=== PATIENT | female | born 1990 | race Caucasian/White ===

== ENCOUNTER 2016-07-09 15:33 | Outpatient (CLI) | payer OTHER ==
[~2016-07-09] VITALS: Ht 158.8 cm; Wt 86.4 kg
[~2016-07-09 15:33] MED LIST: ACET500C5 PO; ALBU8.5H3 INH; AZIT250T94 PO; CEPH-443 PO; CETI10CA PO; GUAI120S26 PO; IBUP-1542 PO; ONDA4TAB14 PO; PNV1TABL12; TRAM50TA2 PO
[2016-07-09 16:11] VITALS: Ht 158.8 cm; Wt 86.4 kg
[2016-07-09 16:12] VITALS: BP 125/78; PULSE 111; RESP 18
--- NOTE | 2016-07-09 17:10 | RADRPT ---
PROCEDURE: US OB biophysical profile. CLINICAL INDICATION: decreased movements, leaking fluid TECHNIQUE: Multiple sonographic images of the pelvis were obtained. The images were reviewed on a PACS workstation. COMPARISON: 02/13/2016 FINDINGS: There is a single viable intrauterine gestation. Cardiac activity is present with 123 beats per min [place]. There is a vertex presentation. The placenta is anterior. There is no evidence of placental abruption. There is a normal amount of amniotic fluid with an GUNJAN = 10.5 cm. Biophysical profile: movement 2/2 tone 2/2. breathing 2/2 GUNJAN 2/2 Total 12/29 RPTAT: AA . IMPRESSION: Normal biophysical profile. . .Alton Fernandez MD, MD Date Time Electronically viewed and signed by .Alton Fernandez MD, MD on 07/09/2016 17:09 .S/
[2016-07-09 17:38] LABS: BASOPHILS % 0.3 % (0.0-2.0); EOSINOPHILS % 0.1 % (0.0-7.0); HEMATOCRIT 34.3 % (37.0-47.0); HEMOGLOBIN 11.6 g/dl (12.0-16.0); LYMPHOCYTES # 2.4 10^3/ul (0.8-2.9); LYMPHOCYTES % 25.3 % (15.0-51.0); MEAN CORPUSCULAR HGB CONC 33.9 g/dl (32.0-37.0); MEAN CORPUSCULAR VOLUME 91.6 fl (82.0-101.0); MEAN PLATELET VOLUME 11.3 fl (7.4-10.4); MONOCYTE # 0.7 10^3/ul (0.3-0.9); NEUTROPHIL # 6.5 10^3/ul (1.6-7.5); NEUTROPHILS % 67.3 % (39.0-77.0); PLATELET COUNT 164 10^3/UL (140-440); RED BLOOD COUNT 3.75 10^6/ul (4.20-5.40); RED CELL DISTRIBUTION WIDTH 13.2 % (11.5-14.5); UNCORRECTED WBC 9.7 10^3/ul (4.8-10.8); WHITE BLOOD COUNT 9.7 10^3/ul (4.8-10.8)
[2016-07-09 17:40] LABS: CONDITION 1
[2016-07-09 17:43] LABS: ADD UMIC YES; URINE BILIRUBIN (Dip) NEGATIVE (NEGATIVE); URINE BLOOD (Dip) 2+ (NEGATIVE); URINE COLOR YELLOW (YELLOW); URINE GLUCOSE (Dip) NEGATIVE (NEGATIVE); URINE KETONES (Dip) NEGATIVE (NEGATIVE); URINE LEUKOCYTE ESTERASE (Dip) TRACE (NEGATIVE); URINE NITRITE (Dip) NEGATIVE (NEGATIVE); URINE TOTAL PROTEIN (Dip) TRACE (NEGATIVE); URINE UROBILINOGEN (Dip) 0.2 E.U./dL (0.1-1.0)
[2016-07-09 18:16] LABS: SQUAMOUS EPITHELIAL CELL,UR MODERATE
[2016-07-09 18:17] LABS: BACTERIA,URINE MODERATE; MUCUS,URINE FEW
--- NOTE | 2016-07-09 19:25 | CONS ---
Date/Time of Note Date/Time of Note DATE: 07/09/16 TIME: 19:16 Consultation Date/Type/Reason Admit Date/Time July 09, 2016 Triage consult This patient is a 25 years old 3 para 2 with EDC of July 26, 2069 which makes her 37 weeks and 4 days She came to OB triage with main complaint nausea vomiting chills watery diarrhea and pressure in her abdomen for about 2 days On examination her blood pressure was 125/78 pulse rate 111 temperature 98.3 heart rate about 145-150 on physical examination she was afebrile and no clear evidence of upper respiratory tract infection however due to vaginal discharge that she was complaining ROM plus was performed was negative her CBC was within normal urinalysis was negative ultrasound performed Her biophysical profile biophysical profile with 88 with GUNJAN of 10.5 cm IV hydration was given. Patient feels much better and option of going down to emergency room for further workup or going home was presented she decided not to go to emergency room and go home she will be seen by her physician 2 days Laboratory Tests Test 07/09/16 15:30 07/09/16 17:00 Urine Bacteria MODERATE Urine Bilirubin NEGATIVE Urine Clarity SLIGHTLY CLOUDY Urine Color YELLOW Urine Glucose NEGATIVE% Urine Hemoglobin 2+ Urine Ketones NEGATIVE Urine Leukocyte Esterase TRACE Urine Microscopic RBC 10-25/HPF Urine Microscopic WBC 0-2/HPF Urine Mucus FEW Urine Nitrite NEGATIVE Urine Specific [place] 1.020 Urine Squamous Epithelial Cells MODERATE Urine Total Protein TRACE Urine Urobilinogen 0.2 E.U./dL Urine pH 6.5 Basophils # 0.010^3/ul Basophils % 0.3% Blood Morphology Comment Eosinophils # 0.010^3/ul Eosinophils % 0.1% Membranes Rupture NEGATIVE Hematocrit 34.3% Hemoglobin 11.6g/dl Lymphocytes # 2.410^3/ul Lymphocytes % 25.3% Mean Corpuscular Hemoglobin 31.0pg Mean Corpuscular Hemoglobin Concent 33.9g/dl Mean Corpuscular Volume 91.6fl Mean Platelet Volume 11.3fl Monocytes # 0.710^3/ul Monocytes % 7.0% Neutrophils # 6.510^3/ul Neutrophils % 67.3% Nucleated Red Blood Cells # 0.010^3/ul Nucleated Red Blood Cells % 0.0/100WBC Platelet Count 01021^3/UL Red Blood Count 3.7510^6/ul Red Cell Distribution Width 13.2% White Blood Count 9.710^3/ul Constitutional: no complaints Eyes: no complaints ENT: no complaints Respiratory: no complaints Cardiovascular: no complaints Gastrointestinal: diarrhea, pain, vomiting Genitourinary: no complaints Musculoskeletal: no complaints Skin: no complaints Neurologic: no complaints Endocrine: no complaints Lymphatic: no complaints Psychological: no complaints Immunologic: no complaints Social History Smoking Status: Former smoker Exam/Review of Systems Vital Signs Vitals Vital Signs Date Time Temp Pulse Resp B/P Pulse Ox O2 Delivery O2 Flow Rate FiO2 07/09/16 16:12 98.3 111 18 125/78 Room Air Results Result Diagram: 07/09/16 1700 Results 24 hrs Laboratory Tests Test 07/09/16 15:30 07/09/16 17:00 Urine Bacteria MODERATE Urine Bilirubin NEGATIVE Urine Clarity SLIGHTLY CLOUDY Urine Color YELLOW Urine Glucose NEGATIVE Urine Hemoglobin 2+ H Urine Ketones NEGATIVE Urine Leukocyte Esterase TRACE H Urine Microscopic RBC 10-25 Urine Microscopic WBC 0-2 Urine Mucus FEW Urine Nitrite NEGATIVE Urine Specific [place] 1.020 Urine Squamous Epithelial Cells MODERATE Urine Total Protein TRACE Urine Urobilinogen 0.2 E.U./dL Urine pH 6.5 Basophils # 0.0 Basophils % 0.3 Blood Morphology Comment Eosinophils # 0.0 Eosinophils % 0.1 Membranes Rupture NEGATIVE Hematocrit 34.3 L Hemoglobin 11.6 L Lymphocytes # 2.4 Lymphocytes % 25.3 Mean Corpuscular Hemoglobin 31.0 Mean Corpuscular Hemoglobin Concent 33.9 Mean Corpuscular Volume 91.6 Mean Platelet Volume 11.3 H Monocytes # 0.7 Monocytes % 7.0 Neutrophils # 6.5 Neutrophils % 67.3 Nucleated Red Blood Cells # 0.0 Nucleated Red Blood Cells % 0.0 Platelet Count 164 # Red Blood Count 3.75 L Red Cell Distribution Width 13.2 White Blood Count 9.7 FATMATA VARELA MD Jul 09, 2016 19:25
--- NOTE | 2016-07-09 20:02 | TRIAGE ---
OB Triage Datetime Report Generated by CPN: 07/09/2016 20:01 Datetime: 07/09/2016 18:42 Stage of : OB Triage Labor Evaluation Frequency: 0 Monitor Mode: External Resting Tone [place]: Relaxed Heart Rate FHR Baseline Rate: 120 Monitor Mode: External US FHR Baseline Changes: No Baseline Change Variability: Moderate 6-25 bpm Accelerations: 15X15 Decelerations: None Category: Category I Datetime: 07/09/2016 18:29 Stage of : OB Triage Datetime: 07/09/2016 18:00 Stage of : OB Triage Labor Evaluation Frequency: 0 Monitor Mode: External Resting Tone [place]: Relaxed Heart Rate FHR Baseline Rate: 135 Monitor Mode: External US FHR Baseline Changes: No Baseline Change Variability: Moderate 6-25 bpm Accelerations: 15X15 Decelerations: None Category: Category I Datetime: 07/09/2016 17:14 Vaginal Exam Dilatation (cms): 0.0 Effacement (%): 50 Station: -2 Exam By: Delon YOUNG Vaginal Bleeding: None Cervix, Consistency: Firm Cervix, Position: Posterior Presentation 'A': Cephalic Datetime: 07/09/2016 17:05 Stage of : OB Triage Datetime: 07/09/2016 16:56 Stage of : OB Triage Labor Evaluation Frequency: 0 Monitor Mode: External Resting Tone [place]: Relaxed Heart Rate FHR Baseline Rate: 135 Variability: Moderate 6-25 bpm Accelerations: 15X15 Decelerations: None Category: Category I Datetime: 07/09/2016 16:36 Stage of : OB Triage Datetime: 07/09/2016 16:02 EGA: 37.4 Arrived From: Home Movement: Present Contractions: Denies/Absent Rupture of Membranes: Unsure Vaginal Bleeding: None Vaginal Discharge: Denies Recent Sexual Intercouse: Denies Abdominal Trauma: Not Applicable Patient Complaints: Nausea; Vomiting Provider Notified: FOROOHAR Datetime: 07/09/2016 16:01 Time of Arrival: 07/09/2016 15:21 Arrived By: Ambulatory Arrived From: Home Chief Complaint: N/V, CHILLS, DIARRHEA, PRESSURE, LEAKING Movement: Present Contractions: Denies/Absent Rupture of Membranes: Unsure Vaginal Bleeding: None Vaginal Discharge: Denies Recent Sexual Intercouse: Denies Abdominal Trauma: Not Applicable Patient Complaints: Nausea; Vomiting; Other Additional Patient Complaints: hx of Acid Reflux disease Provider Notified: AVERY Initial Plan: VS, EFM, ROM+, UA, CBC, BPP Datetime: 07/09/2016 16:00 Assessment Type: Triage Maternal Assessment Level of Consciousness: Fully Conscious DTR's/Clonus: DTRs 2+; No Clonus Headache: Denies Blurred Vision: No Respiratory Effort: Unlabored Breath Sounds, Left: Clear and Equal Breath Sounds, Right: Clear and Equal Nausea/Vomiting: Present RUQ Epigastric Pain: Denies Lower Extremities Edema: Bilateral Lower Extremities Degree: 1+ Upper Extremities Edema: None Degree: None Facial Edema: None Fall Risk Assessment History of Falling: (0) No Secondary Diagnosis: (15) Yes (Annotations: ACID REFLUX DISEASE) Ambulatory Aid: (0) Bedrest/Nurse Assist IV Therapy: (0) No Gait: (0) Normal/Bedrest/Immobile Mental Status: (0) Oriented to Own Ability Fall Score: 15 Fall Risk Score Definition: No Risk: No action required Datetime: 07/09/2016 15:55 Stage of : OB Triage Monitor Mode: External Monitor Mode: External US
== END 2016-07-09 18:55 | disposition home or self-care (01) ==
LOC: OBT 15:33 → L-D 15:34 → OBT 18:55
DX: O21.2 Late vomiting of pregnancy (principal); O26.893 Other specified pregnancy related conditions, third trimester; N89.8 Other specified noninflammatory disorders of vagina; Z3A.37 37 weeks gestation of pregnancy; Z87.891 Personal history of nicotine dependence
CPT/HCPCS: 36415; 76818; 81001; 84112; 85025; Z7500; 81003; G0463

== ENCOUNTER 2016-07-20 23:56 | Inpatient (IN) | payer OTHER ==
[~2016-07-20] VITALS: Ht 157.5 cm; Wt 85.3 kg
[2016-07-21 00:03] VITALS: Ht 157.5 cm; Wt 85.3 kg
[2016-07-21 00:31] VITALS: BP 129/72; PULSE 48; RESP 18
[2016-07-21] MEDS ORDERED: OXYTOCIN 30 UNITS/LR 500 ML IV PRN ×3 (02:00→21:30)
[2016-07-21] MEDS ORDERED: LACTATED RINGER'S 1,000 ML IV PRN (02:00)
[2016-07-21] MEDS ORDERED: CARBOPROST 250 MCG INJ IM PRN ×3 (02:00→21:30)
[2016-07-21] MEDS ORDERED: MISOPROSTOL 200 MCG TAB PR PRN ×3 (02:00→21:30)
[2016-07-21] MEDS ORDERED: LIDOCAINE 1% (MPF) 30 ML INJ INJ PRN (02:00)
[2016-07-21] MEDS ORDERED: IBUPROFEN 600 MG TAB PO PRN ×2 (02:00→18:00)
[2016-07-21] MEDS ORDERED: BUTORPHANOL 2 MG INJ IV PRN (02:00)
[2016-07-21] MEDS ORDERED: OXYTOCIN 30 UNITS/LR 500 ML IV SCH ×3 (02:00→17:33)
[2016-07-21] MEDS ORDERED: METHYLERGONOVINE 0.2 MG INJ IM PRN ×3 (02:00→21:30)
[2016-07-21 02:08] LABS: ADD SCAN DIFF NO
[2016-07-21 02:17] LABS: BASOPHILS % 0.2 % (0.0-2.0); EOSINOPHILS # 0.1 10^3/ul (0.0-0.5); EOSINOPHILS % 0.6 % (0.0-7.0); HEMATOCRIT 35.5 % (37.0-47.0); HEMOGLOBIN 11.9 g/dl (12.0-16.0); LYMPHOCYTES % 33.8 % (15.0-51.0); MEAN CORPUSCULAR HEMOGLOBIN 30.8 pg (29.0-33.0); MEAN CORPUSCULAR HGB CONC 33.5 g/dl (32.0-37.0); MONOCYTE # 0.6 10^3/ul (0.3-0.9); MONOCYTES % 6.2 % (0.0-11.0); NEUTROPHIL # 5.3 10^3/ul (1.6-7.5); NEUTROPHILS % 58.9 % (39.0-77.0); PLATELET COUNT 153 10^3/UL (140-415); RED BLOOD COUNT 3.86 10^6/ul (4.20-5.40)
[2016-07-21 02:20] LABS: INR 0.9; PROTIME 12.1 Sec (12.2-14.2); PT RATIO 0.9
[2016-07-21] MEDS: LACTATED RINGER'S 1,000 ML IV SCH ×3 (02:20→15:31)
[2016-07-21 02:21] LABS: PARTIAL THROMBOPLASTIN TIME 26.4 Sec (25.0-35.0)
--- NOTE | 2016-07-21 03:06 | HP ---
Date/Time of Note Date/Time of Note DATE: 07/21/16 TIME: 03:01 OB - History Hx of Present Free Text/Dictation 25 Year-old with SIUP at 39 weeks presents with a chief complaint of uterine contractions. She was seen at [facility] last night and her exam was 2-/-2 there. She has been receiving her care with an OB clinic. She states good movement. She denies nausea, vomiting, shortness of breath, chest pain, and abdominal pain between contractions, headache, visual changes, vaginal bleeding or LOF. Chief Complaint: uterine contractions : 3 Para: 2 Spontaneous : 0 Therapeutic : 0 Care: Good Care Ultrasounds: Normal mid trimester US Obstetrical Complications: None Medical Complications: None Past Family/Social History * Past Medical, Surgical, Family and Obstetric Histories reviewed from chart. Blood Type: O- Rubella: immune RPR/VDRL: Negative GBS Status: Negative HBsAG: Negative OB Admission Exam Vital Signs Vital Signs Vital Signs Date Time Temp Pulse Resp B/P Pulse Ox O2 Delivery O2 Flow Rate FiO2 07/21/16 00:31 97.6 48 18 129/72 Room Air Physical Exam HEENT: WNL Heart: Rhythm Normal Lungs: Clear Abdomen: WNL Extremities: Normal Cervical Dilatation: 4cm Effacement: 75% Station: -2 Membranes: Intact Heart Rate: 140's Accelerations: Accelerations Present Decelerations: No Decelerations Varibility: Moderate Contractions on Admission: < 5 Minutes Apart Intensity: Moderate Last 72 hours Lab Results CBC & BMP 07/21/16 01:55 OB Assessment/Plan Other plan: 25 Year-old with SIUP at 39 weeks in labor. - FHR: No sign of metabolic acidosis- Category I - Continious EFM, toco - CBC, blood type and screen - Analgesia options with R/B/A discussed in detail with patient - Epidural per patient request - Please see the orders - O neg/Rubella: Immune/GBS negative Admission, procedures, expectations, risks and possible complications have been discussed in detail with the patient. Risk of vaginal delivery including but not limited to bleeding, infection, cervical laceration, placental retention, injury to fetus, blood transfusion, blood transfusion related infection, risk of anesthesia, adhesion, cervical laceration, episiotomy/laceration, possible delivery with risk of bleeding, infection, injury to other organs ( bowel, bladder, ureter, vessels, nerves), injury to fetus, blood transfusion, blood transfusion related infection, risk of anesthesia, scar and hernia formation, needs for future , removal of uterus or any other indicated surgery discussed with the patient. She expressed understanding and repeats the risks. All of her questions were answered; all appropriate consents will be signed. PHYSICIAN'S VERIFICATION OF INFORMED CONSENT: The patient was counseled regarding the procedure, its indications, risks, potential complications and alternatives and any questions were answered. Consent was obtained. PLANNED PROCEDURE/TREATMENT: Vaginal delivery with possible vacuum/forceps delivery episiotomy, repair of laceration possible delivery PHYSICIAN'S VERIFICATION OF INFORMED CONSENT FOR BLOOD TRANSFUSION: There is a reasonable possibility that blood transfusion will be necessary as a result of the patient's procedure. I have discussed the following with the patient/patient's legal fundraising sale representative: An explanation of the benefits and risks of the transfusion of blood or blood products and the possible alternatives. Al questions have been answered to the patient's/patients legal representatives satisfaction. INFORMED CONSENT: The patient has been informed of: - The nature of the proposed care, treatment, services, medic- Potential benefits, risks or side effects, including potential problems related to recuperation. - The likelihood of achieving care treatment and service goals. - Reasonable alternatives to the proposed care, treatment and service. - The relevant risks, benefits and side effects related to alternatives, including the possible results of not receiving care, treatment and services. - When indicated, any limitations on the confidentiality of information learned from or about the patient. - If appropriate, the risks, benefits and alternatives of the drugs to be used for sedation/analgesia including moderate sedation. - If appropriate, patient has been provided information on the risks, benefits and alternatives to the transfusion of blood and/or blood products. EDWARDO HELTON Jul 21, 2016 03:06
--- NOTE | 2016-07-21 04:18 | TRIAGE ---
OB Triage Datetime Report Generated by CPN: 07/21/2016 04:17 Datetime: 07/21/2016 02:15 Assessment Type: Admission Assessment Vaginal Bleeding: Scant Maternal Assessment Level of Consciousness: Fully Conscious DTR's/Clonus: DTRs 2+; No Clonus Headache: Denies Blurred Vision: No Respiratory Effort: Unlabored Breath Sounds, Left: Clear and Equal Breath Sounds, Right: Clear and Equal Nausea/Vomiting: Denies RUQ Epigastric Pain: Denies Lower Extremities Edema: Bilateral Lower Extremities Degree: 1+ Upper Extremities Edema: None Degree: None Facial Edema: None Fall Risk Assessment History of Falling: (0) No Secondary Diagnosis: (0) No Ambulatory Aid: (0) Bedrest/Nurse Assist IV Therapy: (0) No Gait: (0) Normal/Bedrest/Immobile Mental Status: (0) Oriented to Own Ability Fall Score: 0 Fall Risk Score Definition: No Risk: No action required Pain Assessment Pain Scale: 7 Pain Presence: Intermittent Pain Type: Contraction Pain Location: Back Pain Goal: 0 Membrane Status: Intact Datetime: 07/21/2016 02:00 Labor Evaluation Frequency: Irregular Monitor Mode: External Duration (sec)2399: 40-80 Quality: Mild Pattern: Normal: <= 5 Contractions in 10 Minutes Resting Tone [place]: Relaxed Heart Rate FHR Baseline Rate: 115 Monitor Mode: External US Variability: Moderate 6-25 bpm Accelerations: 15X15 Decelerations: None Category: Category I Datetime: 07/21/2016 01:55 Stage of : Labor Datetime: 07/21/2016 01:47 Membrane Status: Intact Datetime: 07/21/2016 01:19 Stage of : OB Triage Datetime: 07/21/2016 01:00 Labor Evaluation Frequency: 3-9 Monitor Mode: External Duration (sec)2399: 40-90 Quality: Mild Pattern: Normal: <= 5 Contractions in 10 Minutes Resting Tone [place]: Relaxed Heart Rate FHR Baseline Rate: 120 Monitor Mode: External US Variability: Moderate 6-25 bpm Accelerations: 15X15 Decelerations: None Category: Category I Datetime: 07/21/2016 00:25 Vaginal Exam Dilatation (cms): 4.0 Effacement (%): 80 Station: -2 Exam By: DGS RN Vaginal Bleeding: Normal Show Cervix, Consistency: Soft Cervix, Position: Posterior Datetime: 07/21/2016 00:15 Assessment Type: Triage Maternal Assessment Level of Consciousness: Fully Conscious DTR's/Clonus: DTRs 2+; No Clonus Headache: Denies Blurred Vision: No Respiratory Effort: Unlabored; Regular Rhythm; Equal Expansion Nausea/Vomiting: Denies RUQ Epigastric Pain: Denies Lower Extremities Edema: None Degree: None Upper Extremities Edema: None Degree: None Facial Edema: None Fall Risk Assessment History of Falling: (0) No Secondary Diagnosis: (0) No Ambulatory Aid: (0) Bedrest/Nurse Assist IV Therapy: (0) No Gait: (0) Normal/Bedrest/Immobile Mental Status: (0) Oriented to Own Ability Fall Score: 0 Fall Risk Score Definition: No Risk: No action required Datetime: 07/21/2016 00:13 Stage of : OB Triage Temperature Route: Oral Pain Assessment Pain Scale: 7 Pain Presence: Intermittent Pain Type: Cramping (Annotations: TIGHTENING) Pain Location: Abdomen; Perineum Pain Goal: 3 Pain Relief Measures: Comfort Measures Datetime: 07/21/2016 00:11 Monitor Mode: External Contraction Comments: [place] applied Heart Rate FHR Baseline Rate: 120 Monitor Mode: External US Comments: EFM applied Datetime: 07/20/2016 23:51 Time of Arrival: 07/20/2016 23:51 EGA: 38.6 Arrived By: Ambulatory Arrived From: Other Hospital Chief Complaint: UC'S, SPOTTING Movement: Present Contractions: Irregular Time Contractions Began: 07/20/2016 22:15 Rupture of Membranes: Denies Vaginal Bleeding: Normal Show Vaginal Discharge: Present Recent Sexual Intercouse: Denies Abdominal Trauma: Not Applicable Patient Complaints: Contractions Additional Patient Complaints: Pt states she just came from [facility] b/c they refused to admit her. Per pt saw pt in clinic today (07/20) _ stated she was 3-4cm _ should go to [facility] if had any pain or uc's. Pt states VE was 3-4cm at [facility] with bloody show. Per [facility] RN V E was 2-3cm with no uc's over 1hr. Pt refuses to be sent home. Time Provider Notified: 07/21/2016 01:19 Provider Notified: Dr.Hadadian Datetime: 07/09/2016 16:02 EGA: 37.2 Datetime: 07/09/2016 16:00 Fall Score: 15 Fall Risk Score Definition: No Risk: No action required
[2016-07-21] MEDS ORDERED: FENTAnyl 2MCG/ML-ROPIV 0.2% 100 ML ONE (05:13)
[2016-07-21] MEDS ORDERED: FENTAnyl 2MCG/ML-ROPIV 0.2% 100 ML BAG EPI SCH (06:00)
[2016-07-21] MEDS ORDERED: NALOXONE (0.4 MG/ML) INJ IV PRN (06:00)
[2016-07-21] MEDS ORDERED: LACTATED RINGER'S 1,000 ML IV* SCH (17:33)
--- NOTE | 2016-07-21 17:33 | LDN ---
Date/Time of Note Date/Time of Note DATE: 07/21/16 TIME: 17:27 Delivery Summary April 20, 2017 Delivery note This patient is a 25 years old 3 para 2 with the estimated date of confinement of July 28, 2016. She was admitted late last night in early labor and made gradual progress to complete dilatation under epidural block and Pitocin augmentation and had an spontaneous vaginal delivery 20 minutes ago the was female with score of 9 and 1 minute 9 at 5 minutes weight of the baby was 6 pounds and 10 admission with occiput posterior position mothers blood type is O- we will be performing a test of the blood group of the baby as well Placenta Delivered: Spontaneously Meconium: none Perineum intact?: Yes Anesthesia type: Epidural Estimated blood loss: 250 Sponge & Needle done & correct: Yes All needle counts correct: Yes Any foreign bodies felt in the: No Problems: Delivery Information Sex Sex: female Apgars 1 Minute: 9 5 Minute: 9 Suctioning Nose & mouth suctioned at vani: Yes Delee suction performed: No Umbilical Cord Umbilical cord with: 3 Vessels Cord presentations: nuchal cord Nuchal cord present X: 1 Cord Blood was obtained: Yes Mother & Baby Disposition Disposition Mom & Baby to Maternity; Good: Yes Baby to NICU: No FATMATA VARELA MD Jul 21, 2016 17:33
[2016-07-21] MEDS ORDERED: ACETAMINOPHEN 500 MG TAB PO PRN ×2 (18:00→21:30)
[2016-07-21 20:45] VITALS: BP_SYST 128; BP_SYST 136; BP_DIAS 62; BP_DIAS 65; PULSE 78; RESP 18
[2016-07-21] MEDS: OXYTOCIN 30 UNITS/LR 500 ML IV SCH ×2 (21:12→22:00)
[2016-07-21] MEDS ORDERED: LANOLIN 7 GM TUBE TOP PRN (21:30)
[2016-07-21] MEDS ORDERED: SENNA/DOCUSATE NA (8.6MG/50MG) TAB PO PRN (21:30)
[2016-07-21] MEDS ORDERED: BENZOCAINE 20% 56 ML SPRAY TOP PRN (21:30)
[2016-07-21] MEDS ORDERED: WITCH HAZEL/GLYCERIN PAD PR PRN (21:30)
[2016-07-21] MEDS ORDERED: OXYCODONE/ASPIRIN (4.88/325) TAB PO PRN ×2 (21:30)
[2016-07-21] MEDS ORDERED: DIBUCAINE 1% 30 GM OINT PR PRN (21:30)
[2016-07-22 03:50] VITALS: BP 113/65; PULSE 55; RESP 18
[2016-07-22] MEDS: IBUPROFEN 600 MG TAB PO PRN ×3 (05:52→17:59)
[2016-07-22 09:00] VITALS: BP 129/63; PULSE 44; RESP 18
[2016-07-22 09:28] LABS: ADD SCAN DIFF NO
[2016-07-22 09:40] LABS: BASOPHILS % 0.1 % (0.0-2.0); EOSINOPHILS % 0.4 % (0.0-7.0); HEMATOCRIT 31.6 % (37.0-47.0); HEMOGLOBIN 10.6 g/dl (12.0-16.0); LYMPHOCYTES # 2.5 10^3/ul (0.8-2.9); LYMPHOCYTES % 24.5 % (15.0-51.0); MEAN CORPUSCULAR HEMOGLOBIN 30.9 pg (29.0-33.0); MEAN CORPUSCULAR HGB CONC 33.5 g/dl (32.0-37.0); MEAN CORPUSCULAR VOLUME 92.1 fl (82.0-101.0); MEAN PLATELET VOLUME 12.9 fl (7.4-10.4); MONOCYTE # 0.6 10^3/ul (0.3-0.9); MONOCYTES % 5.8 % (0.0-11.0); NEUTROPHIL # 6.9 10^3/ul (1.6-7.5); NEUTROPHILS % 68.9 % (39.0-77.0); PLATELET COUNT 153 10^3/UL (140-415); RED BLOOD COUNT 3.43 10^6/ul (4.20-5.40)
[2016-07-22 12:30] VITALS: BP 127/71; PULSE 58; RESP 16
[2016-07-22 15:30] VITALS: BP 116/69; PULSE 70; RESP 16
--- NOTE | 2016-07-22 17:07 | PN ---
Date/Time of Note Date/Time of Note DATE: 07/22/16 TIME: 17:05 OB Subjective Subjective Subjective Patient reports vaginal bleeding decrease. She is currently breast-feeding. Ambulating. Passed flatus. Urinated. Denies any dizziness or any other complaint. She requests tubal sterilization. She has signed consent for tubal sterilization at her course and consent is available currently. OB Objective Objective Objective Physical examination: General appearance patient is alert and oriented 4 and is not in acute distress. Abdomen: Soft, obese, no tenderness, no rebound tenderness, no guarding, no rigidity. Fundus palpable at the level of umbilicus. No fundal tenderness. Extremities: 2+ nonpitting bilateral symmetric edema. No calf tenderness, no edema and no cords palpable. Hematology - 72 Hrs Test 07/21/16 01:55 07/22/16 09:09 Basophils # 0.010^3/ul (0.0-0.1) 0.010^3/ul (0.0-0.1) Basophils % 0.2% (0.0-2.0) 0.1% (0.0-2.0) Eosinophils # 0.110^3/ul (0.0-0.5) 0.010^3/ul (0.0-0.5) Eosinophils % 0.6% (0.0-7.0) 0.4% (0.0-7.0) Hematocrit 35.5% (37.0-47.0) L 31.6% (37.0-47.0) L Hemoglobin 11.9g/dl (12.0-16.0) L 10.6g/dl (12.0-16.0) L Lymphocytes # 3.010^3/ul (0.8-2.9) H 2.510^3/ul (0.8-2.9) Lymphocytes % 33.8% (15.0-51.0) 24.5% (15.0-51.0) Mean Corpuscular Hemoglobin 30.8pg (29.0-33.0) 30.9pg (29.0-33.0) Mean Corpuscular Hemoglobin Concent 33.5g/dl (32.0-37.0) 33.5g/dl (32.0-37.0) Mean Corpuscular Volume 92.0fl (82.0-101.0) 92.1fl (82.0-101.0) Mean Platelet Volume 13.0fl (7.4-10.4) H 12.9fl (7.4-10.4) H Monocytes # 0.610^3/ul (0.3-0.9) 0.610^3/ul (0.3-0.9) Monocytes % 6.2% (0.0-11.0) 5.8% (0.0-11.0) Neutrophils # 5.310^3/ul (1.6-7.5) 6.910^3/ul (1.6-7.5) Neutrophils % 58.9% (39.0-77.0) 68.9% (39.0-77.0) Nucleated Red Blood Cells # 0.010^3/ul (0.0-0.0) 0.010^3/ul (0.0-0.0) Nucleated Red Blood Cells % 0.0/100WBC (0.0-0.0) 0.0/100WBC (0.0-0.0) Platelet Count 43728^3/UL (140-415) 74103^3/UL (140-415) Red Blood Count 3.8610^6/ul (4.20-5.40) L 3.4310^6/ul (4.20-5.40) L Red Cell Distribution Width 13.0% (11.5-14.5) 13.0% (11.5-14.5) White Blood Count 9.010^3/ul (4.8-10.8) 10.010^3/ul (4.8-10.8) OB Assessment/Plan Other Assessment: Status post day #1 Doing well Request tubal sterilization. Risk and benefit of procedure including risk of infection, bleeding damage to surrounding structures including bowel and bladder and risk of failure less than 1% risk of ectopic for any failure occurs discussed the patient in detail and informed consent was obtained. Patient verbalized understanding. She has currently had lunch. Plan to schedule for tomorrow for for stabilization. All questions were answered the patient's best satisfaction KRISTI DEVINE MD Jul 22, 2016 17:07
[2016-07-22 20:15] VITALS: BP 113/82; PULSE 71; RESP 18
[2016-07-23] MEDS ORDERED: LACTATED RINGER'S 1,000 ML IV SCH (00:01)
[2016-07-23] MEDS: IBUPROFEN 600 MG TAB PO PRN ×2 (00:05→12:35)
[2016-07-23 04:30] VITALS: BP 116/75; PULSE 52; RESP 18
[2016-07-23 08:00] VITALS: BP 117/50; PULSE 80; RESP 20
[2016-07-23] MEDS ORDERED: DIPHTH/TET/ACEL PERTUSS (ADULT) 0.5 ML VIAL IM* ONE (09:00)
--- NOTE | 2016-07-23 11:45 | DS ---
Date/Time of Note Date/Time of Note DATE: 07/23/16 TIME: 11:42 Obstetrical Discharge Record Final Diagnosis Final Diagnosis: Term delivered Vaginal Delivery Obstetrical Delivery: Spontaneous Complications Augmentation: Yes Condition on Discharge Physical Assessment Last Vitals: Current Medications Medications (Trade) Dose Ordered Sig/Shonna Route PRN Reason Start Time Stop Time Status Last Admin Dose Admin Lactated Ringer's (Lr) 1,000 ml @ 125 mls/hr Q8H IV 07/21/16 01:37 07/21/16 21:14 DC 07/21/16 15:31 Butorphanol Tartrate (Stadol) 2 mg Q2H PRN IV PAIN 07/21/16 02:00 07/21/16 21:14 DC Lidocaine 30 ml 30 ml ONCE PRN INJ EPISIOTOMY/TEARING 07/21/16 02:00 07/21/16 21:14 DC Oxytocin/Lactated Ringer's 500 ml @ 125 mls/hr ONCE -MAY REPEAT X1 IV 07/21/16 02:00 07/21/16 21:14 DC 07/21/16 17:42 Oxytocin/Lactated Ringer's 500 ml @ 125 mls/hr ONCE IV 07/21/16 02:00 07/21/16 21:14 DC Ibuprofen 600 mg 600 mg ONCE PRN PO Mild Pain (Pain Score 1-3) 07/21/16 02:00 07/21/16 21:15 DC Lactated Ringer's 1,000 ml @ 2,000 mls/hr Q30M PRN IV PRE-EPIDURAL BOLUS 07/21/16 02:00 07/21/16 21:15 DC 07/21/16 04:28 Oxytocin/Lactated Ringer's 500 ml @ 0 mls/hr ONCE PRN IV For Hemorrhage Management 07/21/16 02:00 07/21/16 21:15 DC 07/21/16 06:21 Methylergonovine Maleate (Methergine) 0.2 mg ONCE PRN IM VAGINAL BLEEDING 07/21/16 02:00 07/21/16 21:15 DC Carboprost Tromethamine (Hemabate) 250 mcg ONCE PRN IM VAGINAL BLEEDING 07/21/16 02:00 07/21/16 21:15 DC Misoprostol 1000 mcg 1,000 mcg ONCE PRN NM VAGINAL BLEEDING 07/21/16 02:00 07/21/16 21:15 DC Fentanyl/ Ropivacaine 100 ml @ ud STK-MED ONCE .ROUTE 07/21/16 05:13 07/21/16 05:14 DC Naloxone HCl (Narcan) 0.2 mg Q2M PRN IV FOR RESP RATE 8 OR LESS 07/21/16 06:00 07/21/16 21:15 DC Fentanyl/ Ropivacaine 100 ml 100 ml EPIDURAL (PCEA) EPI 07/21/16 06:00 07/21/16 21:15 DC 07/21/16 11:45 Lactated Ringer's 1,000 ml @ 125 mls/hr Q8H IV* 07/21/16 17:33 07/21/16 21:15 DC Oxytocin/Lactated Ringer's 500 ml @ 0 mls/hr ONCE PRN IV For Hemorrhage Management 07/21/16 18:00 07/22/16 07:47 DC Methylergonovine Maleate (Methergine) 0.2 mg ONCE PRN IM VAGINAL BLEEDING 07/21/16 18:00 07/21/16 21:18 DC Carboprost Tromethamine (Hemabate) 250 mcg ONCE PRN IM VAGINAL BLEEDING 07/21/16 18:00 07/21/16 21:18 DC Misoprostol 1000 mcg 1,000 mcg ONCE PRN NM VAGINAL BLEEDING 07/21/16 18:00 07/21/16 21:19 DC Oxytocin/Lactated Ringer's 500 ml @ 125 mls/hr Q4H IV 07/21/16 17:33 07/22/16 07:47 DC Ibuprofen (Motrin) 600 mg Q6H PRN PO PAIN 07/21/16 18:00 07/21/16 21:18 DC 07/21/16 20:39 Acetaminophen (Tylenol Tab) 500 mg Q6H PRN PO PAIN AND OR ELEVATED TEMP 07/21/16 18:00 07/21/16 21:18 DC Oxycodone/Aspirin (Percodan) 1 tab Q3H PRN PO PAIN LEVEL 1-5 07/21/16 21:30 07/22/16 10:13 Oxycodone/Aspirin (Percodan) 2 tab Q3H PRN PO PAIN LEVEL 6-10 07/21/16 21:30 Senna/Docusate Sodium (Senokot-S) 1 tab BID PRN PO CONSTIPATION 07/21/16 21:30 Witch Roro/ Glycerin (Tucks Pads) 1 pad BEDSIDE MEDICATION PRN NM HEMORRHOID/EPISIOTMY PAIN 07/21/16 21:30 Benzocaine (Dermoplast [place]) 1 spray BEDSIDE MEDICATION PRN TOP HEMORRHOID/EPISIOTMY PAIN 07/21/16 21:30 07/21/16 21:59 Dibucaine (Nupercainal) 1 applic BEDSIDE MEDICATION PRN NM HEMORRHOID/EPISIOTMY PAIN 07/21/16 21:30 Lanolin (Kef-L-Gluqys) 1 applic BEDSIDE MEDICATION PRN TOP BEDSIDE FOR LINDA TO NIPPLES 07/21/16 21:30 07/21/16 21:58 Diphtheria/ Tetanus/Acell Pertussis 0.5 ml 0.5 ml ONCE ONCE IM* 07/23/16 09:00 07/23/16 09:01 DC Oxytocin/Lactated Ringer's 500 ml @ 0 mls/hr ONCE PRN IV For Hemorrhage Management 07/21/16 21:30 07/22/16 07:47 DC Methylergonovine Maleate (Methergine) 0.2 mg ONCE PRN IM VAGINAL BLEEDING 07/21/16 21:30 Carboprost Tromethamine (Hemabate) 250 mcg ONCE PRN IM VAGINAL BLEEDING 07/21/16 21:30 Misoprostol 1000 mcg 1,000 mcg ONCE PRN NM VAGINAL BLEEDING 07/21/16 21:30 Oxytocin/Lactated Ringer's 500 ml @ 125 mls/hr Q4H IV 07/21/16 21:12 07/22/16 07:47 DC 07/21/16 22:00 Ibuprofen (Motrin) 600 mg Q6H PRN PO PAIN 07/21/16 21:30 07/23/16 00:05 Acetaminophen 500 mg 500 mg Q6H PRN PO PAIN AND OR ELEVATED TEMP 07/21/16 21:30 07/22/16 07:34 Lactated Ringer's (Lr) 1,000 ml @ 125 mls/hr Q8H IV 07/23/16 00:01 Voiding: Yes Bowel Movement: Yes Breast: Soft, non-tender Fundus: Firm Calf Tenderness: No Patient Condition: Good FATMATA VARELA MD Jul 23, 2016 11:45
== END 2016-07-23 13:32 | disposition home or self-care (01) | DRG 775 ==
LOC: OBT 23:56 → L-D 23:56 → OBT 07-21 01:19 → L-D 07-21 01:19 → PP1 07-21 20:46
PROVIDERS: ADMIT Obstetrics & Gynecology; ATTEND Obstetrics & Gynecology
PROC: 10E0XZZ Delivery of Products of Conception, External Approach (ICD-10-PCS; principal; 2016-07-21)
PROC: 4A1HX4Z Monitoring of Products of Conception, Cardiac Electrical Activity, External Approach (ICD-10-PCS; 2016-07-21)
DX: O69.1XX0 Labor and delivery complicated by cord around neck, with compression, not applicable or unspecified (principal); Z37.0 Single live birth; Z3A.39 39 weeks gestation of pregnancy
CPT/HCPCS: 36415; 62319; 85025; 85610; 85730; 86592; 86900; 86901; 90715; G0463; J2590; J3010; J7120

== ENCOUNTER 2016-12-02 11:02 | Emergency (ER) | payer OTHER ==
[~2016-12-02] VITALS: Ht 165.1 cm; Wt 83.5 kg
[2016-12-02 11:04] VITALS: Ht 165.1 cm; Wt 83.5 kg
[2016-12-02] MEDS ORDERED: SOD CHLORIDE 0.9% 1,000 ML IV STA (11:32)
[2016-12-02 11:50] LABS: URINE BLOOD (Dip) POC Negative (NEGATIVE)
[2016-12-02 12:10] LABS: ADD SCAN DIFF NO
[2016-12-02 12:33] LABS: BASOPHILS % 0.3 % (0.0-2.0); EOSINOPHILS # 0.1 10^3/ul (0.0-0.5); EOSINOPHILS % 0.6 % (0.0-7.0); HEMATOCRIT 41.1 % (37.0-47.0); HEMOGLOBIN 13.8 g/dl (12.0-16.0); LYMPHOCYTES # 2.2 10^3/ul (0.8-2.9); LYMPHOCYTES % 22.7 % (15.0-51.0); MEAN CORPUSCULAR HEMOGLOBIN 31.4 pg (29.0-33.0); MEAN CORPUSCULAR HGB CONC 33.6 g/dl (32.0-37.0); MEAN CORPUSCULAR VOLUME 93.4 fl (82.0-101.0); MEAN PLATELET VOLUME 10.7 fl (7.4-10.4); MONOCYTE # 0.5 10^3/ul (0.3-0.9); MONOCYTES % 5.4 % (0.0-11.0); NEUTROPHIL # 6.8 10^3/ul (1.6-7.5); NEUTROPHILS % 70.7 % (39.0-77.0); PLATELET COUNT 262 10^3/UL (140-415); RED CELL DISTRIBUTION WIDTH 12.4 % (11.5-14.5); WHITE BLOOD COUNT 9.7 10^3/ul (4.8-10.8)
[2016-12-02 12:37] LABS: ANION GAP 12 (8-16); BLOOD UREA NITROGEN 13 mg/dl (7-20); CALCIUM 9.5 mg/dl (8.4-10.2); CARBON DIOXIDE 26 mmol/L (21-31); CHLORIDE 103 mmol/L (97-110); CREATININE 0.76 mg/dl (0.44-1.00); GLUCOSE 95 mg/dl (70-220); POTASSIUM 3.7 mmol/L (3.5-5.1); SODIUM 137 mmol/L (135-144)
--- NOTE | 2016-12-02 12:41 | ERD ---
ER Documentation Chief Complaint Date/Time DATE: 12/02/16 TIME: 12:33 Chief Complaint PT FEELS SOB AFTER DRINKING ENERGY DRINK , TALKING IN FULL SENTENCES HPI This is a 26-year-old female with no past medical history presenting to the emergency department for feeling short of breath and heart palpitations starting earlier today. Patient states she had an energy drink this morning around 7 AM. Patient states 1 hour later she developed heart palpitations and felt short of breath. Patient states she was sitting in class and she started to feel weak and states she felt anemia "like I was about to faint." No syncopal episode. Patient states that she normally drinks an energy drink every morning with 2 cups of coffee in the evening. Patient states she is sensitive to caffeine and is unsure if this is related. Denies any increase in stress at home or school. Patient states her sister suffers from severe anxiety and she states, "I never want to become that." Last menstrual period was about 1 month ago. Patient states she is on the Depo shot. Currently no chest pain, shortness of breath or difficulty breathing. No drooling or difficulty swallowing. No headache. No weakness. Patient is talking in complete sentences ROS All systems reviewed and are negative except as per history of present illness. Medications Home Meds Active Scripts Nitrofurantoin Monohyd Macrocr (Macrobid) 100 Mg Capsr, 100 MG PO BID for 5 Days , CAP Prov:HIREN BRYANT NP 12/02/16 Allergies Allergies: Coded Allergies: No Known Drug Allergies (Verified Allergy, Mild, 07/21/16) PMhx/Soc History of Surgery: Yes (R Ankle Metal Plate Placed) Anesthesia Reaction: No Hx Neurological Disorder: No Hx Respiratory Disorders: No Hx Cardiac Disorders: No Hx Psychiatric Problems: No Hx Miscellaneous Medical Probl: Yes (Gallstones) Hx Alcohol Use: No Hx Substance Use: No Hx Tobacco Use: No Physical Exam Vitals Vital Signs Date Time Temp Pulse Resp B/P Pulse Ox O2 Delivery O2 Flow Rate FiO2 12/02/16 14:20 98.0 69 20 115/72 97 Room Air 12/02/16 11:04 98.2 76 18 118/76 98 Physical Exam Const: Alert, anxious, oriented to person place and time. Head: Atraumatic Eyes: Normal Conjunctiva ENT: Normal External Ears, Nose and Mouth. Neck: Full range of motion..~ No meningismus. Resp: Clear to auscultation bilaterally. No wheezing, rhonchi or crackles. Patient is talking in complete sentences. Cardio: Regular rate and rhythm, no murmurs Abd: Soft, non tender, non distended. Normal bowel sounds Skin: No petechiae or rashes Back: No midline or flank tenderness Ext: No cyanosis, or edema Neur: Awake and alert Psych: Normal Mood and Affect Result Diagram: 12/02/16 1200 12/02/16 1200 Results 24 hrs Laboratory Tests Test 12/02/16 11:56 12/02/16 12:00 Bedside Urine pH (LAB) 7.5 Bedside Urine Protein (LAB) Negative Bedside Urine Glucose (UA) Negative Bedside Urine Ketones (LAB) Negative Bedside Urine Blood Negative Bedside Urine Nitrite (LAB) Negative Bedside Urine Leukocyte Esterase (L 1+ White Blood Count 9.710^3/ul Red Blood Count 4.4010^6/ul Hemoglobin 13.8g/dl Hematocrit 41.1% Mean Corpuscular Volume 93.4fl Mean Corpuscular Hemoglobin 31.4pg Mean Corpuscular Hemoglobin Concent 33.6g/dl Red Cell Distribution Width 12.4% Platelet Count 31224^3/UL Mean Platelet Volume 10.7fl Neutrophils % 70.7% Lymphocytes % 22.7% Monocytes % 5.4% Eosinophils % 0.6% Basophils % 0.3% Nucleated Red Blood Cells % 0.0/100WBC Neutrophils # 6.810^3/ul Lymphocytes # 2.210^3/ul Monocytes # 0.510^3/ul Eosinophils # 0.110^3/ul Basophils # 0.010^3/ul Nucleated Red Blood Cells # 0.010^3/ul Sodium Level 137mmol/L Potassium Level 3.7mmol/L Chloride Level 103mmol/L Carbon Dioxide Level 26mmol/L Anion Gap 12 Blood Urea Nitrogen 13mg/dl Creatinine 0.76mg/dl Glucose Level 95mg/dl Calcium Level 9.5mg/dl Troponin I < 0.012ng/ml Current Medications Medications (Trade) Dose Ordered Sig/Shonna Route PRN Reason Start Time Stop Time Status Last Admin Dose Admin Sodium Chloride (NS) 1,000 ml @ 1,000 mls/hr Q1H STAT IV 12/02/16 11:32 12/02/16 12:31 DC 12/02/16 12:02 Procedures/MDM [place] [id number] Radiology Main Line: [phone] DIAGNOSTIC IMAGING REPORT Patient: MINE AMEZCUA : 1990 Age: 26 Sex: F MR #: [id number] DOS: 12/02/16 1132 Ordering MD: HIREN BRYANT NP Location: [facility] Room/Bed: PROCEDURE: Chest Radiograph. CLINICAL INDICATION: Syncope TECHNIQUE: Single frontal chest radiograph. COMPARISON: None available FINDINGS: The cardiomediastinal silhouette is within normal limits. No infiltrate or effusion is seen. The bones are intact. IMPRESSION: 1. Unremarkable chest radiograph. EKG: As interpreted by myself and Dr. Resendiz Rate/Rhythm: Sinus bradycardia with sinus arrhythmia with heart rate 59 bpm QRS, ST, T-waves: No changes consistent w/ acute ischemia Impression: No evidence of ischemia or arrhythmia MDM: This is a 26-year-old female presenting to the emergency department for shortness of breath and heart palpitations starting earlier today after drinking an energy drink. Currently no chest pain, shortness of breath or difficulty breathing. Patient states she has intermittent heart palpitations. Patient reports she is sensitive to caffeine and normally drinks an energy drink in the morning and 2 cups of coffee in the evening. EKG shows sinus bradycardia with sinus arrhythmia with heart rate 59 bpm. Urine dip shows 1+ leukocyte esterase. Urine is negative. Labs drawn and IV access obtained. Patient given 1L IV fluid bolus. Labs are unremarkable. No significant anemia or infection. No significant electrolyte imbalance. Troponin is negative. Chest x-ray reviewed by radiologist as unremarkable. Discussed findings with patient. Patient states she is feeling much better. Nw denies chest pain, heart palpitations, cough or shortness of breath. Low suspicion for acute myocardial infection, CVA, intracranial hemorrhage or acute cardiopulmonary etiology. Patient's diagnosis is UTI and Anxiety. Patient will be given prescription for Macrobid. Instructed patient to follow up with PCP in the next 2-3 days for reassessment. Discussed with patient that she may need referral to psychiatry or psychology. Return to ED for any new or worsening symptoms. Patient verbalizes understanding. All questions answered at discharge. Departure Diagnosis: Primary Impression: UTI (urinary tract infection) Urinary tract infection type: acute cystitis Hematuria presence: without hematuria Qualified Code: N30.00 - Acute cystitis without hematuria Additional Impression: Anxiety Condition: HIREN Buckley NP Dec 02, 2016 12:41
[2016-12-02 12:50] LABS: TROPONIN-I < 0.012 ng/ml (0.00-0.12)
--- NOTE | 2016-12-02 13:37 | RADRPT ---
PROCEDURE: Chest Radiograph. CLINICAL INDICATION: Syncope TECHNIQUE: Single frontal chest radiograph. COMPARISON: None available FINDINGS: The cardiomediastinal silhouette is within normal limits. No infiltrate or effusion is seen. Th e bones are intact. IMPRESSION: 1. Unremarkable chest radiograph. RPTAT: KK .Jacobo Cast MD, Date Time Electronically viewed and signed by .Jacobo Cast MD, on 12/02/2016 13:37 .B/
[2016-12-02] MEDS ORDERED: NITR-58 PO (13:42)
[2016-12-02 14:20] VITALS: BP 115/72; PULSE 69; RESP 20; TEMP 98
== END 2016-12-02 14:21 | disposition home or self-care (01) ==
LOC: FTE 11:02
DX: N30.00 Acute cystitis without hematuria (principal); F41.9 Anxiety disorder, unspecified
CPT/HCPCS: 71010; 80048; 81003; 84484; 85025; 93005; J7030; 36415

== ENCOUNTER 2017-07-03 22:42 | Emergency (ER) | END 2017-07-04 01:22 | disposition home or self-care (01) ==

== ENCOUNTER 2017-08-09 21:53 | Emergency (ER) | END 2017-08-10 02:54 | disposition home or self-care (01) ==

== ENCOUNTER 2017-08-13 18:31 | Emergency (ER) | END 2017-08-13 21:59 | disposition home or self-care (01) ==

== ENCOUNTER 2017-09-15 16:37 | Emergency (ER) | END 2017-09-15 17:49 | disposition home or self-care (01) ==

== ENCOUNTER 2017-10-27 10:12 | Emergency (ER) | END 2017-10-27 11:12 | disposition home or self-care (01) ==

== ENCOUNTER 2017-10-30 23:23 | Emergency (ER) | END 2017-10-31 00:48 | disposition home or self-care (01) ==

== ENCOUNTER 2017-12-14 14:23 | Emergency (ER) | END 2017-12-14 19:06 | disposition home or self-care (01) ==

== ENCOUNTER 2018-06-20 17:58 | Emergency (ER) | payer OTHER ==
[~2018-06-20] VITALS: Ht 167.6 cm; Wt 91.5 kg
[~2018-06-20 17:58] MED LIST changes: -ALBU8.5H3 INH; +ALBU8.5H8 INH; +AZIT250T PO; -AZIT250T94 PO; +D-ME473S2 PO; +FLUT9.9S NASAL; +HC30CR25 TOP; +LORA-441 PO; +NITR-58 PO; -ONDA4TAB14 PO; +PHEN177S43 MT; -PNV1TABL12; +SODI126M NASAL; -TRAM50TA2 PO
[2018-06-20 18:04] VITALS: BP 124/87; PULSE 100; RESP 20; Ht 167.6 cm; Wt 91.5 kg
--- NOTE | 2018-06-20 20:35 | ERD ---
ER Documentation Chief Complaint Chief Complaint Complains of feeling a bit of anxiety Hx of anxiety HPI Patient is a 27-year-old female with a history of anxiety who presents with anxiety. She said that over the past few days it has been tough to sleep. She says that she has been giving the generic Ativan in the past. She has no suicidal or homicidal ideation at this time. She brought HER-2 daughters in for ear pain and decided that she would check in as well to get checked out. ROS All systems reviewed and are negative except as per history of present illness. Medications Home Meds Active Scripts Lorazepam* (Ativan*) 0.5 Mg Tablet, 0.5 MG PO Q8H PRN for ANXIETY, #10 TAB Prov:YECENIA WASHINGTON DO 12/14/17 Azithromycin* (Zithromax*) 250 Mg Tablet, 250 MG PO .ALKA DIRECTED, #6 TAB TAKE 500 MG (2 TABS) THE FIRST DAY THEN 250 MG (1 TAB) DAYS 2-5 Prov:MICA ESTRADA PA-C 10/31/17 Hydrocortisone* Topical (Hydrocortisone* Topical) 2.5%-28.3 Gm Cream..g., 1 APPLIC TOP BID, #1 TUB Prov:ANANYA SAMUELS PA-C 10/27/17 Albuterol Sulfate* (Proair HFA*) 8.5 Gm Hfa.aer.ad, 2 PUFF INH Q4, #1 INHALER Prov:ANANYA SAMUELS PA-C 10/27/17 Sodium Chloride (Saline Nasal Mist) 126 Ml Mist, 1 SPRAY NASAL DAILY PRN for NASAL CONGESTION for 5 Days, BOTTLE Prov:ANANYA SAMUELS PA-C 10/27/17 Dextromethorphan Hb-Promethazine Hcl* (Promethazine DM* Syrup) 473 Ml Syrup, 5 ML PO Q6 PRN for COUGH for 5 Days, ML Prov:ANANYA SAMUELS PA-C 10/27/17 Acetaminophen* (Tylophen*) 500 Mg Capsule, 500 MG PO Q6H PRN for PAIN LEVEL 1-5 for 7 Days, TAB Prov:ANANYA SAMUELS PA-C 09/15/17 Fluticasone Propionate (Flonase Allergy Relief) 9.9 Ml [place].susp, 1 SPRAY NASAL BID, #1 BOTTLE TO EACH NOSTRIL Prov:ANANYA SAMUELS PA-C 09/15/17 Phenol* (Chloraseptic* [place]) 177 Ml [place].pump, 2 SPRAY MT Q2H PRN for SORE THROAT, #1 BOTTLE Prov:MAGALY ESCALANTE PA-C 08/13/17 Azithromycin* (Zithromax*) 250 Mg Tablet, 250 MG PO .ZPACK DIRECTED, #6 TAB TAKE 500 MG (2 TABS) THE FIRST DAY THEN 250 MG (1 TAB) DAYS 2-5 Prov:YUDI DAVID NP 08/10/17 Acetaminophen* (Tylophen*) 500 Mg Capsule, 1 CAP PO Q6H PRN for PAIN AND OR ELEVATED TEMP, #20 CAP Prov:YUDI DAVID NP 08/10/17 Ibuprofen* (Motrin*) 600 Mg Tab, 600 MG PO Q6H PRN for PAIN AND OR ELEVATED TEMP, #30 TAB Prov:YUDI DAVID NP 08/10/17 Cetirizine Hcl* (Zyrtec*) 10 Mg Capsule, 10 MG PO DAILY, #30 TAB.CHEW Prov:YUDI DAVID NP 08/10/17 Nxnrolooity-F-Sqsbkzydby Hb* (Guaifenesin* DM Syrup) 120 Ml Syrup, 10 ML PO Q4H PRN for COUGH, #120 ML Prov:YUDI DAVID NP 08/10/17 Ibuprofen* (Motrin*) 600 Mg Tab, 600 MG PO Q6H PRN for PAIN AND OR ELEVATED TEMP, #30 TAB Prov:BALDEMAR VÁSQUEZ NP 07/04/17 Cephalexin* (Keflex*) 500 Mg Capsule, 500 MG PO QID for 5 Days, CAP Prov:BALDEMAR VÁSQUEZ STRATEGY EXECUTION CONSULTANT 07/04/17 Nitrofurantoin Monohyd Macrocr (Macrobid) 100 Mg Capsr, 100 MG PO BID for 5 Days, CAP Prov:HIREN BRYANT STRATEGY EXECUTION CONSULTANT 12/02/16 Allergies Allergies: Coded Allergies: No Known Drug Allergies (Verified Allergy, Mild, 08/09/17) PMhx/Soc History of Surgery: Yes (right ankle) Anesthesia Reaction: No Hx Neurological Disorder: No Hx Respiratory Disorders: No Hx Cardiac Disorders: No Hx Psychiatric Problems: No Hx Miscellaneous Medical Probl: Yes (Gallstones) Hx Alcohol Use: No Hx Substance Use: No Hx Tobacco Use: No Smoking Status: Never smoker FmHx Family History: No diabetes Physical Exam Vitals Vital Signs Date Temp Pulse Resp B/P (MAP) Pulse Ox O2 O2 Flow FiO2 Time Delivery Rate 06/20/18 98.0 88 19 132/86 98 Room Air 20:11 (101) 06/20/18 98.4 100 20 124/87 98 18:04 (99) Physical Exam Const: No acute distress Head: Atraumatic Eyes: Normal Conjunctiva ENT: Normal External Ears, Nose and Mouth. Neck: Full range of motion. No meningismus. Resp: Clear to auscultation bilaterally Cardio: Regular rate and rhythm, no murmurs Abd: Soft, non tender, non distended. Normal bowel sounds Skin: No petechiae or rashes Back: No midline or flank tenderness Ext: No cyanosis, or edema Neur: Awake and alert Psych: Normal Mood and Affect no suicidal or homicidal ideation Procedures/MDM Patient is a 27-year-old female who presents with anxiety. She does not require further workup or a 5150 hold at this time. I do not believe that giving her benzodiazepine medications is good for her especially given that she takes care of 3 young children. The patient would likely benefit from being on an SSRI which could be prescribed by a primary doctor. I told her to discuss this with a primary doctor. She can return for any worsening symptoms. Departure Diagnosis: Primary Impression: Anxiety Condition: Fair Patient Instructions: Panic Attack Referrals: Your doctor Additional Instructions: Call your primary care doctor TOMORROW for an appointment during the next 1 WEEK.Tell the stenographer secretary that you were referred from this facility.See the doctor sooner or return here if your condition worsens before your appointment time. Discuss with your doctor possible treatment with an SSRI medication. FAUSTINO JEFFREY MD Jun 20, 2018 20:35
== END 2018-06-20 20:38 | disposition home or self-care (01) ==
LOC: FTE 17:58
DX: F41.9 Anxiety disorder, unspecified (principal)
CPT/HCPCS: 99282

== ENCOUNTER 2018-08-17 14:26 | Emergency (ER) | payer OTHER ==
[~2018-08-17] VITALS: Ht 162.6 cm; Wt 95.3 kg
[2018-08-17 14:42] VITALS: Ht 162.6 cm; Wt 95.3 kg
[2018-08-17] MEDS ORDERED: PARO-2 PO (17:42)
--- NOTE | 2018-08-17 17:44 | ERD ---
ER Documentation Chief Complaint Chief Complaint dizziness, fatigued, x 3 days; on depovera; denies any med prob HPI Patient is a 28-year-old female with anxiety and gastritis who presents with fatigue. She has had fatigue for the past 3 days. She said that it is gotten worse. She had loose diarrhea for 2 days with 3 episodes. There is no blood. She had one episode of vomiting today with no blood. She felt lightheaded. She stopped her Paxil 2 days ago because she ran out. ROS All systems reviewed and are negative except as per history of present illness. Medications Home Meds Active Scripts Paroxetine Hcl* (Paxil*) 20 Mg Tablet, 20 MG PO HS, #30 TAB Prov:FAUSTINO JEFFREY MD 08/17/18 Lorazepam* (Ativan*) 0.5 Mg Tablet, 0.5 MG PO Q8H PRN for ANXIETY, #10 TAB Prov:YECENIA WASHINGTON DO 12/14/17 Azithromycin* (Zithromax*) 250 Mg Tablet, 250 MG PO .CaylaPACK DIRECTED, #6 TAB TAKE 500 MG (2 TABS) THE FIRST DAY THEN 250 MG (1 TAB) DAYS 2-5 Prov:MICA ESTRADA PA-C 10/31/17 Hydrocortisone* Topical (Hydrocortisone* Topical) 2.5%-28.3 Gm Cream..g., 1 APPLIC TOP BID, #1 TUB Prov:ANANYA SAMUELS PA-C 10/27/17 Albuterol Sulfate* (Proair HFA*) 8.5 Gm Hfa.aer.ad, 2 PUFF INH Q4, #1 INHALER Prov:ANANYA SAMUELS PA-C 10/27/17 Sodium Chloride (Saline Nasal Mist) 126 Ml Mist, 1 SPRAY NASAL DAILY PRN for NASAL CONGESTION for 5 Days, BOTTLE Prov:ANANYA SAMUELS PA-C 10/27/17 Dextromethorphan Hb-Promethazine Hcl* (Promethazine DM* Syrup) 473 Ml Syrup, 5 ML PO Q6 PRN for COUGH for 5 Days, ML Prov:ANANYA SAMEULS PA-C 10/27/17 Acetaminophen* (Tylophen*) 500 Mg Capsule, 500 MG PO Q6H PRN for PAIN LEVEL 1-5 for 7 Days, TAB Prov:ANANYA SAMUELS PA-C 09/15/17 Fluticasone Propionate (Flonase Allergy Relief) 9.9 Ml [place].susp, 1 SPRAY NASAL BID, #1 BOTTLE TO EACH NOSTRIL Prov:ANANYA SAMUELS PA-C 09/15/17 Phenol* (Chloraseptic* [place]) 177 Ml [place].pump, 2 SPRAY MT Q2H PRN for SORE THROAT, #1 BOTTLE Prov:MAGALY ESCALANTE PA-C 08/13/17 Azithromycin* (Zithromax*) 250 Mg Tablet, 250 MG PO .CaylaPACK DIRECTED, #6 TAB TAKE 500 MG (2 TABS) THE FIRST DAY THEN 250 MG (1 TAB) DAYS 2-5 Prov:YUDI DAVID NP 08/10/17 Acetaminophen* (Tylophen*) 500 Mg Capsule, 1 CAP PO Q6H PRN for PAIN AND OR ELEVATED TEMP, #20 CAP Prov:YUDI DAVID NP 08/10/17 Ibuprofen* (Motrin*) 600 Mg Tab, 600 MG PO Q6H PRN for PAIN AND OR ELEVATED TEMP, #30 TAB Prov:YUDI DAVID NP 08/10/17 Cetirizine Hcl* (Zyrtec*) 10 Mg Capsule, 10 MG PO DAILY, #30 TAB.CHEW Prov:YUDI DAVID NP 08/10/17 Zqzgldpgexw-Z-Ttqkloevju Hb* (Guaifenesin* DM Syrup) 120 Ml Syrup, 10 ML PO Q4H PRN for COUGH, #120 ML Prov:YUDI DAVID NP 08/10/17 Ibuprofen* (Motrin*) 600 Mg Tab, 600 MG PO Q6H PRN for PAIN AND OR ELEVATED TEMP, #30 TAB Prov:BALDEMAR VÁSQUEZ ADMINISTRATIVE STAFF SUPERVISOR 07/04/17 Cephalexin* (Keflex*) 500 Mg Capsule, 500 MG PO QID for 5 Days, CAP Prov:BALDEMAR VÁSQUEZ ADMINISTRATIVE STAFF SUPERVISOR 07/04/17 Nitrofurantoin Monohyd Macrocr (Macrobid) 100 Mg Capsr, 100 MG PO BID for 5 Days, CAP Prov:HIREN BRYANT NP 12/02/16 Allergies Allergies: Coded Allergies: No Known Drug Allergies (Verified Allergy, Mild, 08/09/17) PMhx/Soc History of Surgery: Yes (right ankle) Anesthesia Reaction: No Hx Neurological Disorder: No Hx Respiratory Disorders: No Hx Cardiac Disorders: No Hx Psychiatric Problems: No Hx Miscellaneous Medical Probl: Yes (Gallstones) Hx Alcohol Use: No Hx Substance Use: No Hx Tobacco Use: No FmHx Family History: diabetes Physical Exam Vitals Vital Signs Date Temp Pulse Resp B/P (MAP) Pulse Ox O2 O2 Flow FiO2 Time Delivery Rate 08/17/18 98.3 84 18 121/69 98 Room Air 17:55 (86) 08/17/18 98.9 91 20 127/66 99 14:42 (86) Physical Exam Const: No acute distress Head: Atraumatic Eyes: Normal Conjunctiva ENT: Normal External Ears, Nose and Mouth. Neck: Full range of motion. No meningismus. Resp: Clear to auscultation bilaterally Cardio: Regular rate and rhythm, no murmurs Abd: Soft, non tender, non distended. Normal bowel sounds Skin: No petechiae or rashes Back: No midline or flank tenderness Ext: No cyanosis, or edema Neur: Awake and alert Psych: Normal Mood and Affect Results 24 hrs Laboratory Tests Test 08/17/18 17:27 08/17/18 17:28 Bedside Glucose 89 mg/dL POC Beta HCG, Qualitative NEGATIVE Procedures/MDM EKG read by me: Rate/Rhythm: Tachycardia at a rate of 102 Intervals: Normal Impression: Sinus tachycardia without ischemia Accu-Chek is normal. test is negative. Patient is a 28-year-old female who presents with multiple complaints. I believe she has anxiety related to stopping her Paxil 2 days ago. EKG, Accu-Chek, and test are all negative. I doubt serious electrolyte abnormality or anemia. Vital signs are normal. I doubt hypo-or hyperglycemia. I doubt . I doubt significant EKG abnormalities or arrhythmias. The patient went to follow-up closely with her primary doctor within 1 week. She can return for any worsening symptoms. Departure Diagnosis: Primary Impression: Anxiety Condition: Fair Patient Instructions: Anxiety Reaction Referrals: Your doctor Additional Instructions: Call your primary care doctor TOMORROW for an appointment during the next 1 WEEK.Tell the attendance secretary that you were referred from this facility.See the doctor sooner or return here if your condition worsens before your appointment time. FAUSTINO JEFFREY MD Aug 17, 2018 17:44
[2018-08-17 17:55] VITALS: BP 121/69; PULSE 84; RESP 18
== END 2018-08-17 17:55 | disposition home or self-care (01) ==
LOC: FTE 14:26
DX: F41.9 Anxiety disorder, unspecified (principal)
CPT/HCPCS: 81025; 82962; 93005; Z7502

== ENCOUNTER 2018-09-17 12:02 | Emergency (ER) | payer OTHER ==
[~2018-09-17] VITALS: Ht 162.6 cm; Wt 99.1 kg
[~2018-09-17 12:02] MED LIST changes: +GUAI120S25 PO; -GUAI120S26 PO; +PARO-2 PO
[2018-09-17 12:06] VITALS: BP 161/80; PULSE 84; RESP 18; Ht 162.6 cm; Wt 99.1 kg
[2018-09-17] MEDS ORDERED: KETOROLAC 60 MG INJ IM STA (13:35)
[2018-09-17] MEDS ORDERED: IBUP-1542 PO (15:58)
[2018-09-17] MEDS ORDERED: LORA1TAB PO (15:58)
[2018-09-17] MEDS ORDERED: PHEN177S43 MT (15:58)
[2018-09-17] MEDS ORDERED: BENZ-6 PO (15:58)
--- NOTE | 2018-09-20 19:18 | ERD ---
ER Documentation Chief Complaint Chief Complaint ST, fevers, L ear pain, L axillary bump, L breast pain X 5 days HPI 28-year-old female patient with no significant past medical history presents the ED complaining of sore throat, fever, left ear pain, left axilla, left breast pain that started about 5 days ago. Patient also reports that she takes medications for anxiety like a refill as her appointment is 12 days away, would like medication to hold her over until she sees her clinical physician. Denies any chest pain, shortness of breath, nausea, vomiting, diarrhea, neck stiffness, abdominal pain. ROS All systems reviewed and are negative except as per history of present illness. Medications Home Meds Active Scripts Benzonatate* (Tessalon Perle*) 100 Mg Capsule, 100 MG PO Q8H PRN for COUGH, #20 CAP Prov:GEETA LOPEZ PA-C 09/17/18 Phenol* (Chloraseptic* [place]) 177 Ml [place].pump, 2 SPRAY MT Q2H PRN for SORE THROAT, #1 BOTTLE Prov:GEETA LOPEZ PA-C 09/17/18 Ibuprofen* (Motrin*) 600 Mg Tab, 600 MG PO Q6, #30 TAB Prov:GEETA LOPEZ PA-C 09/17/18 Lorazepam* (Lorazepam*) 1 Mg Tablet, 1 MG PO Q8, #10 TAB Prov:GEETA LOPEZ PA-C 09/17/18 Paroxetine Hcl* (Paxil*) 20 Mg Tablet, 20 MG PO HS, #30 TAB Prov:FAUSTINO JEFFREY MD 08/17/18 Lorazepam* (Ativan*) 0.5 Mg Tablet, 0.5 MG PO Q8H PRN for ANXIETY, #10 TAB Prov:YECENIA WASHINGTON DO 12/14/17 Azithromycin* (Zithromax*) 250 Mg Tablet, 250 MG PO .ALKA DIRECTED, #6 TAB TAKE 500 MG (2 TABS) THE FIRST DAY THEN 250 MG (1 TAB) DAYS 2-5 Prov:MICA ESTRADA PA-C 10/31/17 Hydrocortisone* Topical (Hydrocortisone* Topical) 2.5%-28.3 Gm Cream..g., 1 APPLIC TOP BID, #1 TUB Prov:ANANYA SAMUELS PA-C 10/27/17 Albuterol Sulfate* (Proair HFA*) 8.5 Gm Hfa.aer.ad, 2 PUFF INH Q4, #1 INHALER Prov:ANANYA SAMUELS PA-C 10/27/17 Sodium Chloride (Saline Nasal Mist) 126 Ml Mist, 1 SPRAY NASAL DAILY PRN for NASAL CONGESTION for 5 Days, BOTTLE Prov:ANANYA SAMUELS PA-C 10/27/17 Dextromethorphan Hb-Promethazine Hcl* (Promethazine DM* Syrup) 473 Ml Syrup, 5 ML PO Q6 PRN for COUGH for 5 Days, ML Prov:ANANYA SAMUELS PA-C 10/27/17 Acetaminophen* (Tylophen*) 500 Mg Capsule, 500 MG PO Q6H PRN for PAIN LEVEL 1-5 for 7 Days, TAB Prov:ANANYA SAMUELS PA-C 09/15/17 Fluticasone Propionate (Flonase Allergy Relief) 9.9 Ml [place].susp, 1 SPRAY NASAL BID, #1 BOTTLE TO EACH NOSTRIL Prov:ANANYA SAMUELS PA-C 09/15/17 Phenol* (Chloraseptic* [place]) 177 Ml [place].pump, 2 SPRAY MT Q2H PRN for SORE THROAT, #1 BOTTLE Prov:MAGALY ESCALANTE PA-C 08/13/17 Azithromycin* (Zithromax*) 250 Mg Tablet, 250 MG PO .ZPACK DIRECTED, #6 TAB TAKE 500 MG (2 TABS) THE FIRST DAY THEN 250 MG (1 TAB) DAYS 2-5 Prov:YUDI DAVID NP 08/10/17 Acetaminophen* (Tylophen*) 500 Mg Capsule, 1 CAP PO Q6H PRN for PAIN AND OR ELEVATED TEMP, #20 CAP Prov:YUDI DAVID NP 08/10/17 Ibuprofen* (Motrin*) 600 Mg Tab, 600 MG PO Q6H PRN for PAIN AND OR ELEVATED TEMP, #30 TAB Prov:YUDI DAVID NP 08/10/17 Cetirizine Hcl* (Zyrtec*) 10 Mg Capsule, 10 MG PO DAILY, #30 TAB.CHEW Prov:YUDI DAVID CODING SPEC 08/10/17 Plzckqroznd-N-Vliftpjffj Hb* (Guaifenesin* DM Syrup) 120 Ml Syrup, 10 ML PO Q4H PRN for COUGH, #120 ML Prov:ILYAKELLYAARONYUDI DUMONT TElle MORAN 08/10/17 Ibuprofen* (Motrin*) 600 Mg Tab, 600 MG PO Q6H PRN for PAIN AND OR ELEVATED TEMP, #30 TAB Prov:BALDEMAR VÁSQUEZ CODING SPEC 07/04/17 Cephalexin* (Keflex*) 500 Mg Capsule, 500 MG PO QID for 5 Days, CAP Prov:BALDEMAR VÁSQUEZ CODING SPEC 07/04/17 Nitrofurantoin Monohyd Macrocr (Macrobid) 100 Mg Capsr, 100 MG PO BID for 5 Days, CAP Prov:HIREN BRYANT CODING SPEC 12/02/16 Allergies Allergies: Coded Allergies: No Known Drug Allergies (Verified Allergy, Mild, 09/17/18) PMhx/Soc History of Surgery: Yes (right ankle) Anesthesia Reaction: No Hx Neurological Disorder: No Hx Respiratory Disorders: No Hx Cardiac Disorders: No Hx Psychiatric Problems: No Hx Miscellaneous Medical Probl: Yes (Gallstones) Hx Alcohol Use: No Hx Substance Use: No Hx Tobacco Use: No Smoking Status: Never smoker FmHx Family History: No diabetes, No coronary disease Physical Exam Vitals Vital Signs Date Temp Pulse Resp B/P (MAP) Pulse Ox O2 O2 Flow FiO2 Time Delivery Rate 09/17/18 98.6 84 18 161/80 98 12:06 (107) Physical Exam Const: Dky-vtl-quyzcyavt, well-nourished. In no acute distress. Head: Atraumatic, normocephalic Eyes: Normal Conjunctiva without injection. No purulent discharge. PERRL. EOMI ENT: Normal external ear. Ear canal without erythema. Tympanic membrane pearly valadez without effusion or bulging. Nasal canal clear with normal turbinates. Moist oropharynx without tonsillar exudates. Non-erythematous pharynx. Uvula midline. No drooling. No trismus. Neck: Full range of motion. No meningismus. No cervical lymphadenopathy. Resp: Clear to auscultation bilaterally. No wheezing, rhonchi, rales, or crackles. No accessory muscle use. No retractions. Cardio: Regular rate and rhythm. No murmurs, rubs or gallops. Abd: Soft, non tender, non distended. Normal bowel sounds. No palpable masses. No rebound tenderness. No guarding. Skin: No petechiae or rashes Back: No midline tenderness. No CVA tenderness. Ext: No cyanosis, or edema. Neur: Awake and alert. Psych: Normal Mood and Affect Results 24 hrs Laboratory Tests Test 09/17/18 13:56 POC Beta HCG, Qualitative NEGATIVE Current Medications Medications Dose Sig/Shonna Start Time Status Last (Trade) Ordered Route PRN Stop Time Admin Dose Reason Admin Ketorolac 60 mg ONCE STAT 09/17/18 DC 09/17/18 Tromethamine IM 13:35 14:17 (Toradol) 09/17/18 13:37 Procedures/MDM 20-year-old female patient with no significant past medical history presents to ED complaining of sore throat, fever, left ear pain, lump on patient's left axilla and pain in her breasts started about 5 days ago. Patient is afebrile and nontoxic-appearing. Patient's blood pressure is 161/80. Blood Pressure Assessment: Patient's blood pressure was elevated (>120/80) but appears stable without evidence of hypertension emergency or urgency. The patient was counseled about the risks of hypertension and urged to pursue outpatient monitoring and therapy within a week with their primary care physician. Patient is appropriate for outpatient antibiotics. Patient's physical exam include lungs which were clear to auscultation and a normal pulse oximetry. Bilateral ears pearly siddiqui. No tenderness to palpation of tragus or mastoid. Low suspicion for mastoiditis, otitis externa, otitis media. Patient is speaking in full sentences. There is a low suspicion for pneumonia, epiglottitis, croup, sinusitis, peritonsillar abscess, hands foot mouth disease, scarlet fever, Kawasaki disease, Bo's angina, retropharyngeal abscess, meningitis, sepsis, acute abdomen or other emergent conditions. IMPRESSION: 1. Lobulated circumscribed 1.5 cm hypoechoic solid appearing mass at the 9 o'clock left breast. 2. Subcutaneous 9 mm complex cysts in the left axilla likely a sebaceous cyst. 3. Recommend diagnostic mammography to further evaluate. BIRADS 0 (Incomplete - need additional imaging evaluation). Patient has a lobulated circumscribed 1.5 cm hypoechoic solid appearing mass at 9 o'clock left breast. Differential diagnosis considered include but is not limited to fibroadenoma, cyst, fibrocystic changes, malignancy. Low suspicion for mastitis, deep space infection, sepsis, cellulitis, or other emergent conditions. Diagnosis: Breast Pain, Sore Throat, Encounter for medication refill, Discharge medications: Tessalon Perles, Chloraseptic [place], Ativan, Ibuprofen Follow up with primary care physician in 1-2 days. Instructed patient to return to the ED sooner for any worsening symptoms. Patient's questions were answered. Patient is hemodynamically stable. Patient understood and agreed with discharge plan. Patient discharged stable.. Discussed differentials Disclaimer: Inadvertent spelling and grammatical errors are likely due to EHR/dictation software use and do not reflect on the overall quality of patient care. Also, please note that the electronic time recorded on this note does not necessarily reflect the actual time of the patient encounter. Pain, encounter Departure Diagnosis: Primary Impression: Breast pain Additional Impressions: Encounter for medication refill Sore throat Condition: Stable Patient Instructions: Breast Self-Exam (BSE), Mammography, Self-Care for Sore Throats, Anxiety Reaction, Breast Mass, Uncertain Cause, Viral Syndrome (Adult) Referrals: [facility] YOU HAVE RECEIVED A MEDICAL SCREENING EXAM AND THE RESULTS INDICATE THAT YOU DO NOT HAVE A CONDITION THAT REQUIRES URGENT TREATMENT IN THE EMERGENCY DEPARTMENT. FURTHER EVALUATION AND TREATMENT OF YOUR CONDITION CAN WAIT UNTIL YOU ARE SEEN IN YOUR DOCTORS OFFICE WITHIN THE NEXT 1-2 DAYS. IT IS YOUR RESPONSIBILITY TO MAKE AN APPOINTMENT FOR FOLOW-UP CARE. IF YOU HAVE A PRIMARY DOCTOR --you should call your primary doctor and schedule an appointment IF YOU DO NOT HAVE A PRIMARY DOCTOR YOU CAN CALL OUR PHYSICIAN REFERRAL HOTLINE AT IF YOU CAN NOT AFFORD TO SEE A PHYSICIAN YOU CAN CHOSE FROM THE FOLLOWING [facility] [address] [facility] [address] [facility] [address] [facility] [address] [facility]. [facility]. [address] [facility]. [facility] YOU HAVE RECEIVED A MEDICAL SCREENING EXAM AND THE RESULTS INDICATE THAT YOU DO NOT HAVE A CONDITION THAT REQUIRES URGENT TREATMENT IN THE EMERGENCY DEPARTMENT. FURTHER EVALUATION AND TREATMENT OF YOUR CONDITION CAN WAIT UNTIL YOU ARE SEEN IN YOUR DOCTORS OFFICE WITHIN THE NEXT 1-2 DAYS. IT IS YOUR RESPONSIBILITY TO MAKE AN APPOINTMENT FOR FOLOW-UP CARE. IF YOU HAVE A PRIMARY DOCTOR --you should call your primary doctor and schedule and appointment IF YOU DO NOT HAVE A PRIMARY DOCTOR YOU CAN CALL OUR PHYSICIAN REFERRAL HOTLINE AT . IF YOU CAN NOT AFFORD TO SEE A PHYSICIAN YOU CAN CHOSE FROM THE FOLLOWING [facility]: [facility] [address] [place] [address] [facility] [address] [place] [place] [id number] [place] [address] [address] [place] [address] [facility] URGENT CARE/SPECIALTIES Additional Instructions: Call your primary care doctor TOMORROW for an appointment during the next 2-3 days.See the doctor sooner or return here if your condition worsens before your appointment time. GEETA LOPEZ PA-C Sep 20, 2018 19:16
== END 2018-09-17 16:27 | disposition left against medical advice (07) ==
LOC: FTE 12:02
DX: N64.4 Mastodynia (principal); J02.9 Acute pharyngitis, unspecified; Z76.0 Encounter for issue of repeat prescription
CPT/HCPCS: 76642; 81025; 87880; 96372; J1885; Z7502